=== PATIENT | female | born 1930 | race Caucasian/White ===

== ENCOUNTER 2016-10-22 12:04 | Inpatient (IN) | payer OTHER ==
--- NOTE | 2016-10-22 12:18 | EDPHY ---
H & P Time Seen by Provider: 10/22/16 12:13 HPI/ROS: CHIEF COMPLAINT: change in mental status HISTORY OF PRESENT ILLNESS: Patient is an 83-year-old female detention resident with a history of atrial fibrillation and CVA who presents to the emergency department with slight change in her mental status. Per EMS report the patient was diagnosed with the UTI a couple of days ago. She received a single dose of antibiotics. However, this antibiotic was discontinued due to an interaction with amiodarone. EMS reports that the patient had a slight change in mental status this morning. He states that she answered his questions appropriately and seemed pretty with it. The patient is without complaint. She denies any abdominal pain, nausea or vomiting. The patient wears a diaper at baseline. She has had no dysuria or frequency per her report. She denies back pain. No cough or shortness of breath. No chest pain. REVIEW OF SYSTEMS: My complete review of systems is negative except as mentioned in the HPI. Past Medical/Surgical History: Includes atrial fibrillation, CVA, right-sided weakness, hyperlipidemia, hypertension, GERD, coronary artery disease, muscle weakness, osteoporosis, depression, overactive bladder Social history: The patient is a detention resident The patient is DNR Smoking Status: Former smoker Physical Exam: Vitals noted GENERAL: Well-appearing, in no acute distress, alert. HEENT: Eyes normal to inspection, normal pharynx, no signs of dehydration. NECK: No thyromegaly, no lymphadenopathy, supple. RESPIRATORY: Clear to auscultation bilaterally, no rales, rhonchi or wheezing. CVS: Regular rate and rhythm, no rubs, murmurs, or gallops. ABDOMEN: Soft, nontender, nondistended, no organomegaly. : Diaper in place BACK: Normal to inspection, no CVA tenderness. SKIN: Normal color, no rash, warm, dry. No pallor. EXTREMITIES: Bilateral pedal edema, no calf tenderness, no Homans sign or cords. NEURO/PSYCH: Alert and oriented. Patient seems answer all my questions appropriately. Normal mood and affect, normal motor sensory exam. Constitutional: Initial Vital Signs Temperature (C) 36.6 C 10/22/16 12:06 Heart Rate 88 10/22/16 12:06 Respiratory Rate 18 10/22/16 12:06 Blood Pressure 65/49 L 10/22/16 12:06 Allergies/Adverse Reactions: No Allergies [NKDA] Allergy (Verified 06/08/15 16:02) Home Medications: Medication Instructions Recorded Acetaminophen [Tylenol ES 500 mg 500 mg PO BID 06/08/15 (*)] Amiodarone HCl 200 mg PO DAILY 06/08/15 Apixaban [Eliquis] 5 mg PO BID 06/08/15 Cholecalciferol Vit D3 [Vitamin D3 1 tab PO DAILY 06/08/15 (*)] Levothyroxine [Synthroid 25 mcg 25 mcg PO DAILY06 06/08/15 (*)] Lisinopril [Zestril 10 mg (*)] 10 mg PO DAILY 06/08/15 Omeprazole [Prilosec] 40 mg PO DAILY18 06/08/15 Pravastatin Sodium [Pravachol] 10 mg PO DAILY 06/08/15 Solifenacin Succinate [Vesicare] 10 mg PO DAILY 06/08/15 Vitamin B Complex [B Complex] 1 each PO DAILY 06/08/15 traZODone [traZODONE 100MG (*)] 100 mg PO HS 06/08/15 Amiodarone HCl [Pacerone (*)] 200 mg PO DAILY #0 tab 06/13/15 Apixaban [Eliquis] 5 mg PO BID #0 tab 06/13/15 Cholecalciferol Vit D3 [Vitamin D3 1,000 units PO DAILY #0 tab 06/13/15 (*)] Diclofenac Sodium [Voltaren Gel 0 shanae TP QID 06/13/15 (Rx)] Furosemide [Lasix 40 MG (*)] 40 mg PO DAILY #90 tab 06/13/15 Levothyroxine [Synthroid 25 mcg 25 mcg PO DAILY06 #0 tab 06/13/15 (*)] Lisinopril [Zestril 10 mg (*)] 10 mg PO DAILY #0 tab 06/13/15 Pantoprazole Sodium [Protonix 40mg 40 mg PO DAILY18 #0 tab 06/13/15 (*)] Pravastatin Sodium [Pravachol] 10 mg PO HS #0 tab 06/13/15 Solifenacin Succinate [Vesicare 5 10 mg PO DAILY8 #0 tab 06/13/15 MG (*)] traZODone [traZODONE 100MG (*)] 100 mg PO HS #0 tab 06/13/15 Medical Decision Making ED Course/Re-evaluation: In the emergency department I met EMS on arrival. I took report. I reviewed the patient's records that she brought with her from [place]. It is noted that the patient had a positive urine culture (25,000) on 10/15/2016. At that time she also had greater than 100 white cells and 10-20 red cells. There is moderate bacteria. The patient had received 2 doses ciprofloxacin and this was discontinued due to its interaction with amiodarone Patient's family arrived. I spoke with the daughter. She states the patient is a DNR and the patient wanted minimal intervention. Initially, the patient's daughter states she did not want antibiotics or any further treatment. After my discussion with the findings thus far the patient did agree to antibiotics. The patient triggers sepsis screening alert. However, she does not want any invasive procedures. Patient was noted to have significant pedal edema. She will be given fluids gingerly rather than 30 milliliters/kilogram. Although I suspect potential urinary tract infection we have not obtained a urine result. The patient was wearing a diaper on arrival. A Fagan will need to be placed. The patient and daughter consented. Awaiting chest x-ray. Patient was given ertapenem 1 g IV. 1240: The patient is alert. She is answering questions appropriately. She has no complaints. There are no signs of distress. Patient's daughter states she seems at her baseline. I discussed the plan with the patient's daughter and answered all her questions. I discussed the case with the hospitalist service. They agree to admission. Chest x-ray: No focal infiltrate. The patient does have nodular disease. There is a metallic object over the left heart. 1325: Still awaiting lactic acid. I discussed this with the nursing staff. Lactate was 1.4. Differential Diagnosis: My differential includes but is not limited to urinary tract infection, pyelonephritis, electrolyte abnormality, sugar abnormality, bacteremia, sepsis, pneumonia, Critical Care Time: Patient required 35 minutes of critical care time. This was exclusive of any unbundled procedure. This was due to the patient's abnormal vital signs, long discussions with family, frequent rechecks, consultation with the hospitalist service. - Data Points Laboratory Results: Laboratory Results 10/22/16 11:45 10/22/16 11:45 10/22/16 10/22/16 13:20 11:45 WBC 27.71 H 10^3/uL (3.80-9.50) RBC 3.84 L 10^6/uL (4.18-5.33) Hgb 12.3 L g/dL (12.6-16.3) Hct 37.1 L % (38.0-47.0) MCV 96.6 fL (81.5-99.8) MCH 32.0 pg (27.9-34.1) MCHC 33.2 g/dL (32.4-36.7) RDW 13.2 % (11.5-15.2) Plt Count 403 H 10^3/uL (150-400) MPV 10.0 fL (8.7-11.7) Neut % (Auto) Not Reported Lymph % (Auto) Not Reported [place] % (Auto) Not Reported Eos % (Auto) Not Reported Baso % (Auto) Not Reported Nucleat RBC Rel Count 0.0 % (0.0-0.2) Absolute Neuts (auto) Not Reported Absolute Lymphs (auto) Not Reported Absolute Monos (auto) Not Reported Absolute Eos (auto) Not Reported Absolute Basos (auto) Not Reported Absolute Nucleated RBC 0.00 10^3/uL (0-0.01) Immature Gran % Not Reported Seg Neutrophils % 89 % Band Neutrophils % 5 % Lymphocytes % 6 % Immature Gran # Not Reported Absolute Seg Neuts 24.66 H 10^/uL (1.70-6.50) Absolute Band Neuts 1.39 H 10^3/uL (0.00-0.70) Absolute Lymphocytes 1.66 10^3/uL (1.00-3.00) Toxic Granulation PRESENT H Platelet Estimate INCREASED H (ADEQ) Oval Macrocytes 1+ H PT 19.4 H SEC (12.0-15.0) INR 1.63 H (0.83-1.16) APTT 36.1 SEC (23.0-38.0) Sodium 137 mEq/L (134-144) Potassium 5.3 H mEq/L (3.5-5.2) Chloride 101 mEq/L (97-110) Carbon Dioxide 21 L mEq/l (22-31) Anion Gap 15 mEq/L (8-16) BUN 75 H mg/dL (7-23) Creatinine 3.0 H mg/dL (0.6-1.0) Estimated GFR 15 Glucose 167 H mg/dL (70-100) Calcium 10.1 mg/dL (8.5-10.4) Urine Color Pending Urine Appearance Pending Urine pH Pending Ur Specific [place] Pending Urine Protein Pending Urine Ketones Pending Urine Blood Pending Urine Nitrate Pending Urine Bilirubin Pending Urine Urobilinogen Pending Ur Leukocyte Esterase Pending Ur Culture Indicated? Pending Urine Glucose Pending Medications Given: Discontinued Medications Sodium Chloride (Ns) 500 mls @ 0 mls/hr IV ONCE ONE PRN Reason: Wide Open Stop: 10/22/16 12:21 Last Admin: 10/22/16 12:40 Dose: 500 mls Ertapenem 1 gm/ Sodium (Chloride) 100 mls @ 200 mls/hr IV EDNOW ONE PRN Reason: Protocol Stop: 10/22/16 13:13 Last Admin: 10/22/16 14:10 Dose: 100 mls Sodium Chloride (Ns) 1,000 mls @ 0 mls/hr IV ONCE ONE PRN Reason: Wide Open Stop: 10/22/16 14:00 Last Admin: 10/22/16 13:59 Dose: 1,000 mls Departure - Departure Disposition: [facility] Inpatient Acute Clinical Impression: Severe sepsis, Altered mental status Condition: Good
[2016-10-22] MEDS ORDERED: NS 500 ML IV ONE ×2 (12:20→23:58)
[2016-10-22 12:29] LABS: ADD DIFF? YES; ADD MORPH? NO; ADD SCAN? NO; ATYPICAL LYMPHOCYTE FLAG 0 (0-99); FRAGMENT RBC FLAG 0 (0-99); HEMATOCRIT 37.1 % (38.0-47.0); HEMOGLOBIN 12.3 g/dL (12.6-16.3); LEFT SHIFT FLG 0 (0-99); LIPEMIA HEMOLYSIS FLAG 80 (0-99); MEAN CELL HEMOGLOBIN CONCENTR. 33.2 g/dL (32.4-36.7); MEAN CELL VOLUME 96.6 fL (81.5-99.8); PLATELET CLUMPS FLAG 0 (0-99); PLATELET COUNT 403 10^3/uL (150-400); RED BLOOD CELL COUNT 3.84 10^6/uL (4.18-5.33); RED CELL DISTRIBUTION WIDTH 13.2 % (11.5-15.2)
[2016-10-22 12:33] LABS: INR 1.63 (0.83-1.16); PROTIME(PATIENT) 19.4 SEC (12.0-15.0)
[2016-10-22 12:34] LABS: ANION GAP 15 mEq/L (8-16); APTT 36.1 SEC (23.0-38.0); CALCIUM 10.1 mg/dL (8.5-10.4); CARBON DIOXIDE 21 mEq/l (22-31); CHLORIDE 101 mEq/L (97-110); GLOMERULAR FILTRATION RATE 15; GLUCOSE 167 mg/dL (70-100); POTASSIUM 5.3 mEq/L (3.5-5.2); SODIUM 137 mEq/L (134-144)
[2016-10-22] MEDS ORDERED: ERTAPENEM 1 GM in NS 100 ML IV ONE (12:44)
[2016-10-22 13:25] LABS: MACROCYTES 1+; PLATELET ESTIMATE INCREASED (ADEQ); TOXIC GRANULATION PRESENT
--- NOTE | 2016-10-22 13:34 | DX ---
Chest, AP Upright and Lateral Views October 22, 2016 at 12:35 p.m. Clinical History: 86-year-old female with increasing confusion and possible UTI. Comparison Study: Chest, dated June 13, 2015. Findings: The cardiac and mediastinal silhouettes are stable in size. There has been interval placeme nt of a small metallic device projected over the left ventricle. There is mild peribronchial thickeni ng. There has also been development of some small nodular opacities in the upper lung zones bilateral ly. These could be further evaluated with chest CT imaging, as clinically directed. 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 There is no pleural effusion, peripheral interstitial edema, or pneumothorax. Degenerative features of the shoulders and spine are noted. There are surgical clips in the upper abdomen. Impression: 1. Interval placement of a clip projected over the left ventricle. Correlation with the patient's car diac history is suggested. 2. Interval development of bilateral opacities in the upper lung zones, which could be further evalua carlota with CT imaging, as clinically directed. 3. There is no new focal infiltrate otherwise identified, nor is there evidence of congestive heart f ailure. I discussed the above findings with Dr. Abeba Bermudez at 1:15 p.m. on October 22, 2016.
[2016-10-22] MEDS ORDERED: NS 1,000 ML IV ONE ×2 (13:59→14:09)
[2016-10-22 14:06] LABS: COLOR AMBER
[2016-10-22] MEDS ORDERED: ONDANSETRON DISINTEGRATING 4 MG TAB PO PRN (14:09)
[2016-10-22] MEDS ORDERED: ONDANSETRON 4 MG/2 ML VIAL IVP PRN (14:09)
[2016-10-22] MEDS ORDERED: NS W/ 20 KCl/L 1,000 ML IV SCH (14:15)
[2016-10-22 14:19] LABS: BACTERIA TRACE /hpf (NONE SEEN); WBC,URINE 50-182 /hpf (0-3)
[2016-10-22] MEDS: NS 1,000 ML IV SCH ×3 (15:00→21:54)
--- NOTE | 2016-10-22 15:01 | GHP ---
[f rep st] HISTORY AND PHYSICAL DATE OF ADMISSION: 10/22/2016 CHIEF COMPLAINT: Confusion. HISTORY OF PRESENT ILLNESS: An 86-year-old female with an extensive cardiac history, [facility] noted to be somnolent and confused. Patient was transported by EMS from nursing to the emergency department. In the emergency department, patient is endorsing suprapub ic pain, dysuria, subjective fevers and chills, mild nausea, no vomiting. Denies diarrhea. Denies c hest pain, palpitations, or shortness of breath. The patient is a current alf resident. De soniyaes eating breakfast this morning due to lethargy. Reports her recent overall intake has been low. PAST MEDICAL HISTORY: 1. Atrial fibrillation, on anticoagulation. 2. History of a CVA. 3. Hyperlipidemia. 4. Hypertension. 5. Gastroesophageal reflux disease. 6. Coronary artery disease. 7. Osteoporosis. 8. Depression. 9. Pulmonary hypertension. 10. Severe mitral regurgitation. SOCIAL HISTORY: Patient is a alf resident. Denies tobacco, alcohol or illicit drugs. FAMILY HISTORY: Negative for heart disease. ADVANCED DIRECTIVES: The patient is do not resuscitate, [facility] She says her medical decision maker would be her daughter. REVIEW OF SYSTEMS: A 10-point review of systems is negative with the exception of that reported in t he HPI. PHYSICAL EXAMINATION: VITAL SIGNS: Blood pressure 65/49, heart rate 88, respiratory rate 18, 100% o n 2 L, 36.6. GENERAL: This is a fragile, elderly female, lying flat in bed. HEENT: Notable for dr y mucous membranes. Eye exam is negative for any icterus. CARDIAC: Patient is regular rate and rhy thm. Systolic murmur is appreciated. PULMONARY: Patient has poor respiratory effort. Dry rales at bilateral bases. GASTROINTESTINAL: Positive bowel sounds. Abdomen is tender to palpation in supra pubic area. No rebound or guarding. No CVA tenderness is appreciated. MUSCULOSKELETAL: Negative f or any lower extremity edema. SKIN: Negative for any rashes. NEUROLOGIC: Patient is alert and lindy ented x2. PSYCHIATRIC: She is pleasant and cooperative on interview and examination. LAB DATA: White count 27,000, hematocrit 37.1; which is baseline, platelets 403. Creatinine 3.0; ba seline 1, potassium 5.3, bicarb 21, glucose 167. Chest x-ray, which I personally reviewed and interp reted, shows no acute infiltrates. Radiology comments on several upper lobe opacities; may be nodule s, will need further diagnostic imaging. ASSESSMENT AND PLAN: This is an 86-year-old female presenting with lethargy and confusion. 1. Severe sepsis. The patient is presenting with hypotension, leukocytosis, fever. Baseline blood pressures, per the patient's chart, are hypertensive ranging in the 130s to 160s. Patient was report edly diagnosed with a urinary tract infection in the alf and given 1 dose of antibiotics. P andre for aggressive fluid resuscitation. Blood pressures are stable, will not need pressure support. Initiate empiric antibiotics for presumed sepsis secondary to urinary source. Will treat with ceftr iaxone empirically. Blood cultures and urine cultures have been sent from the emergency department. 2. Pyelonephritis. The patient is presenting septic presumed from a urinary source. Will send urin alysis urine culture, blood cultures. 3. Acute kidney injury, presumably secondary to sepsis, hyperperfusion and urinary tract infection. Again, will fluid resuscitate, treat with empiric antibiotics and follow her renal function. 4. Hyperkalemia secondary to acute kidney injury. Will check an EKG and rule out acute changes. Pl enid the patient on telemetry monitoring. If changes on the EKG, will treat with Kayexalate. 5. Hypotension. The patient is baseline hypertensive presenting with systolic blood pressures in th e 60s. Will aggressively fluid resuscitate and follow. 6. Paroxysmal atrial fibrillation. The patient is regular on my examination. Check an EKG. Contin ue her outpatient medications with the exception of any medications that may compound her hypotension . 7. Hypothyroidism. Will continue her Synthroid therapy. 8. Gastroesophageal reflux disease. Will continue her PPI. 9. Coronary artery disease. Patient is denying any active chest pain. Once reconciled, can continu e her cardiac medications, which based on history, appear to include Eliquis, statin. Will hold ENID inhibitor for hypotension prophylaxis. Continue patient's full-dose anticoagulation. DIET: Cardiac. DISPOSITION: Expecting greater than 2 midnights as patient is presenting septic, presumed from urina ry source. I have discussed the case with the emergency room physician. Patient will be triaged to the medical-surgical floor with cardiac monitoring for care. /[id number]/MODL
[2016-10-22] MEDS ORDERED: BISACODYL 5 MG EC TAB PO PRN (15:18)
[2016-10-22] MEDS ORDERED: traMADol 50 MG TAB PO PRN (15:18)
[2016-10-22] MEDS: buPROPion 100 MG TAB PO SCH ×2 (17:39→20:13)
--- NOTE | 2016-10-22 17:41 | CPEKG ---
Heart Rate: 92 RR Interval: 652 P-R Interval: 196 QRSD Interval: 114 QT Interval: 380 QTC Interval: 471 P [place]: 1 QRS [place]: 24 T Wave [place]: 10 EKG Severity - ABNORMAL ECG - EKG Impression: SINUS RHYTHM EKG Impression: NONSPECIFIC INTRAVENTRICULAR CONDUCTION DELAY Electronically Signed By: Prasanth Garcia 23-Oct-2016 07:39:11
[2016-10-22] MEDS: BACLOFEN 10 MG TAB PO SCH (20:13)
[2016-10-22] MEDS: APIXABAN 2.5 MG TAB PO SCH (20:13)
[2016-10-22] MEDS: DOCUSATE SODIUM 100 MG CAP PO SCH (20:13)
[2016-10-22] MEDS: ATORVASTATIN CALCIUM 10 MG TAB PO SCH (20:13)
[2016-10-22] MEDS: ASCORBIC ACID 500 MG TAB PO SCH (20:17)
[2016-10-22] MEDS ORDERED: PHENAZOPYRIDINE HCL 100 MG TAB PO SCH (21:00)
[2016-10-22] MEDS: ACETAMINOPHEN 325 MG TAB PO PRN (23:26)
[2016-10-22] MEDS: NYSTATIN 15 GM CR TUBE TP SCH (23:27)
[2016-10-23] MEDS ORDERED: ALTEPLASE 2 MG VIAL IVP PRN (03:55)
[2016-10-23 04:57] LABS: % IMMATURE GRANULYOCYTES 0.9 % (0.0-1.1); ABSOLUTE IMMATURE GRANULOCYTES 0.17 10^3/uL (0.00-0.10); ADD DIFF? NO; ADD MORPH? NO; ADD SCAN? NO; ATYPICAL LYMPHOCYTE FLAG 0 (0-99); FRAGMENT RBC FLAG 0 (0-99); HEMATOCRIT 28.8 % (38.0-47.0); HEMOGLOBIN 9.2 g/dL (12.6-16.3); LEFT SHIFT FLG 0 (0-99); LIPEMIA HEMOLYSIS FLAG 80 (0-99); MEAN CELL HEMOGLOBIN 31.6 pg (27.9-34.1); MEAN CELL HEMOGLOBIN CONCENTR. 31.9 g/dL (32.4-36.7); MEAN PLATELET VOLUME 9.9 fL (8.7-11.7); PLATELET CLUMPS FLAG 0 (0-99); PLATELET COUNT 269 10^3/uL (150-400); RED BLOOD CELL COUNT 2.91 10^6/uL (4.18-5.33); RED CELL DISTRIBUTION WIDTH 13.3 % (11.5-15.2)
[2016-10-23 05:16] LABS: ANION GAP 9 mEq/L (8-16); CALCIUM 8.7 mg/dL (8.5-10.4); CARBON DIOXIDE 18 mEq/l (22-31); CHLORIDE 113 mEq/L (97-110); CREATININE 1.8 mg/dL (0.6-1.0); GLOMERULAR FILTRATION RATE 27; GLUCOSE 85 mg/dL (70-100); POTASSIUM 4.2 mEq/L (3.5-5.2); SODIUM 140 mEq/L (134-144)
[2016-10-23] MEDS: LEVOTHYROXINE 112 MCG TAB PO SCH (05:17)
[2016-10-23] MEDS: DOCUSATE SODIUM 100 MG CAP PO SCH ×2 (07:26→23:06)
[2016-10-23] MEDS: NS 1,000 ML IV SCH ×2 (08:30→18:34)
[2016-10-23] MEDS ORDERED: Herbals/Supplements -Info Only PO SCH (09:00)
[2016-10-23] MEDS ORDERED: NON-FORMULARY NEW DRUG (Mirabegron [Myrbetriq] 50 MG) PO SCH (09:00)
[2016-10-23] MEDS: APIXABAN 2.5 MG TAB PO SCH ×2 (10:09→20:40)
[2016-10-23] MEDS: AMIODARONE HCL 200 MG TAB PO SCH (10:10)
[2016-10-23] MEDS: ASCORBIC ACID 500 MG TAB PO SCH ×2 (10:11→20:40)
[2016-10-23] MEDS: ASPIRIN 81 MG CHEWABLE TAB PO SCH (10:11)
[2016-10-23] MEDS: FAMOTIDINE 20 MG TAB PO SCH (10:11)
[2016-10-23] MEDS: buPROPion 100 MG TAB PO SCH ×3 (10:11→20:40)
[2016-10-23] MEDS: BACLOFEN 10 MG TAB PO SCH ×2 (10:11→20:40)
[2016-10-23] MEDS: NYSTATIN 15 GM CR TUBE TP SCH (10:12)
--- NOTE | 2016-10-23 10:36 | IR ---
Imaging-Guided Peripherally Inserted Central Catheter History: Septic shock. Prophylactic Antibiotic: Cefazolin was not ordered and administered for antimicrobial prophylaxis be cause it was not medically necessary for this procedure. VTE Prophylaxis: There is not an order for VTE prophylaxis to be given within 24 hours after procedu re end time because it was not medically necessary for this procedure. Crosscutting Measure: Patient's current list of medications including all known prescriptions, over- the-counters, herbals, and vitamin/mineral/dietary supplements are reviewed. Medications' name, dosa ge, frequency, and route of administration are confirmed. Technique: Following informed consent, the right arm was prepped and draped in sterile fashion. 1% Xy locaine was used for local anesthetic. All elements of maximal sterile barrier technique including cap, mask, sterile gown, sterile gloves, large sterile sheet, hand hygiene, and 2% chlorhexidine for cutaneous antisepsis, followed. Ultrasound evaluation of potential access site was performed. After successfully identifying a patent vessel, ultrasound guidance was used to puncture the vein. A permanent recording was created for the patient's record. Ultrasound transducer was placed in sterile sleeve and used for real-time imaging guidance over steri le gel to enter the basilic vein. 0.018 measuring wire was passed centrally under fluoroscopic contro l. A skin kacie with scalpel blade was followed by removing the access needle. A 5 Martiniquais peel-away sh eath was followed by a 5 Martiniquais double-lumen central catheter, trimmed to 44 cm length. The tip of t he catheter was positioned centrally and the guidewire removed. A single fluoroscopic spot image was obtained in inspiration. The hub of the catheter was fixed to the skin using a sterile StatLock adhes karri device, and a sterile dressing was applied. The catheter was irrigated. Findings: The tip of the central catheter terminates at the junction of the superior vena cava and th e right atrium. Fluoroscopy: 0.2 minutes, 2 images Impression: 5 Martiniquais double lumen peripherally inserted central catheter is ready to use.
--- NOTE | 2016-10-23 14:33 | HOSPPROG ---
Hospitalist Progress Note Assessment/Plan: # Sepsis - 2/2 urinary source - BP remains low requiring pressor support - WBC slightly down - cont dopamine - cont IVF - cont empiric abx # Acute Pyelonephritis - Urine cx Pending - cont aggressive IVF and empiric abx # Hypotension 2/2 Sepsis - baseline BP 130's - oxygen saturations 100% on 2L - cont dopamine/IVF - holding lasix and home BP meds # VLAD 2/2 sepsis - creatinine down from 3.0 to 1.8 this am - cont ivf and dopamine # Acute leukocytosis - 27-> 17 this am - cont ceftriaxone # Atrial fibrillation - TELE (personally reviewed and interpreted) in sinus- rate controlled - cont anticoagulation - cont amiodarone # hypothyroidism - cotn synthroid # proph - on anticoagulation # diet - cardiac # dispo -> 2MN as requiring acute care for sepsis including pressors/IVF I have discussed the case with RN - we will cont with aggressive IVF as pressures still requiring dopamine this am Subjective: denies cp Objective: Vital Signs Temp Pulse Resp BP Pulse Ox 36.5 C 93 14 122/66 H 100 10/23/16 11:38 10/23/16 11:38 10/23/16 11:38 10/23/16 11:38 10/23/16 11:38 Laboratory Results 10/23/16 04:00 10/23/16 04:00 10/22/16 10/23/16 10/24/16 05:59 05:59 05:59 Intake Total 5413 480 Output Total 1375 625 Balance 4038 -145 PT 19.4 SEC (12.0-15.0) H 10/22/16 11:45 INR 1.63 (0.83-1.16) H 10/22/16 11:45 - Physical Exam Constitutional: chronically ill appearing Eyes: anicteric sclera Ears, Nose, Mouth, Throat: dry mucous membranes Cardiovascular: regular rate and rhythym, systolic murmur Respiratory: no respiratory distress, no rales or rhonchi Gastrointestinal: normoactive bowel sounds, soft, non-tender abdomen Genitourinary: no bladder fullness Skin: warm, normal color Musculoskeletal: No asymmetric calves Neurologic: No AAOx3 Psychiatric: No agitated Lymph, Heme, Immunologic: no cervical LAD ICD10 Worksheet Patient Problems: Problems Problem Status Diagnosed Altered mental status Acute Severe sepsis Acute Aortic regurgitation Acute Chronic Disease Mgmt/Transitional Care Acute Diastolic CHF due to valvular disease Acute Mitral regurgitation Acute Pulmonary hypertension Acute
[2016-10-23] MEDS: ATORVASTATIN CALCIUM 10 MG TAB PO SCH (20:40)
[2016-10-24] MEDS: NS 1,000 ML IV SCH ×2 (04:12→15:30)
[2016-10-24] MEDS: LEVOTHYROXINE 112 MCG TAB PO SCH (04:13)
[2016-10-24] MEDS: NYSTATIN 15 GM CR TUBE TP SCH ×3 (04:14→20:40)
[2016-10-24 04:49] LABS: ANION GAP 4 mEq/L (8-16); CALCIUM 8.8 mg/dL (8.5-10.4); CARBON DIOXIDE 21 mEq/l (22-31); CHLORIDE 115 mEq/L (97-110); CREATININE 1.3 mg/dL (0.6-1.0); GLOMERULAR FILTRATION RATE 39; GLUCOSE 85 mg/dL (70-100); POTASSIUM 3.9 mEq/L (3.5-5.2); SODIUM 140 mEq/L (134-144)
[2016-10-24 04:54] LABS: HEMATOCRIT 27.9 % (38.0-47.0); HEMOGLOBIN 8.8 g/dL (12.6-16.3); MEAN CELL HEMOGLOBIN CONCENTR. 31.5 g/dL (32.4-36.7); MEAN CELL VOLUME 98.2 fL (81.5-99.8); RED BLOOD CELL COUNT 2.84 10^6/uL (4.18-5.33)
[2016-10-24] MEDS: BACLOFEN 10 MG TAB PO SCH ×2 (08:56→20:23)
[2016-10-24] MEDS: buPROPion 100 MG TAB PO SCH ×3 (08:57→20:40)
[2016-10-24] MEDS: DOCUSATE SODIUM 100 MG CAP PO SCH ×2 (08:57→20:23)
[2016-10-24] MEDS: AMIODARONE HCL 200 MG TAB PO SCH (08:57)
[2016-10-24] MEDS: FAMOTIDINE 20 MG TAB PO SCH (08:57)
[2016-10-24] MEDS: APIXABAN 2.5 MG TAB PO SCH ×2 (08:57→20:23)
[2016-10-24] MEDS: ASCORBIC ACID 500 MG TAB PO SCH ×2 (08:57→20:23)
[2016-10-24] MEDS: ASPIRIN 81 MG CHEWABLE TAB PO SCH (08:57)
--- NOTE | 2016-10-24 13:22 | HOSPPROG ---
Hospitalist Progress Note Assessment/Plan: # Sepsis - 2/2 urinary source - BP remains low requiring pressor support - WBC slightly down - wean dopamine - cont IVF - cont empiric abx # Acute Pyelonephritis - Urine cx grew Aerococcus - micro cannot run sensitivities on this pathogen Pathogen no in [place] - will discuss with renal - cont ceftriaxone # Hypotension 2/2 Sepsis - baseline BP 130's - oxygen saturations 100% on 1L - cont dopamine/IVF - holding lasix and home BP meds # VLAD 2/2 sepsis - creatinine down from 3.0 to 1.3 this am - can wean dopamine -and IVF as able # Acute leukocytosis - 27-> 10 this am - cont ceftriaxone # Atrial fibrillation - TELE (personally reviewed and interpreted) in sinus- rate controlled - cont anticoagulation - cont amiodarone # hypothyroidism - cont synthroid # proph - on anticoagulation # diet - cardiac # dispo -> 2MN as requiring acute care for sepsis - including IV abx and IVF I have discussed the case with RN - we will wean dopamine today and decrease IVF if PO intake improving Subjective: denies CP Objective: Vital Signs Temp Pulse Resp BP Pulse Ox 37.1 C 90 18 109/59 L 99 10/24/16 11:26 10/24/16 11:26 10/24/16 11:26 10/24/16 12:51 10/24/16 11:26 Microbiology 10/22/16 14:17 Urine Culture - Final Urine,Clean Catch Aerococcus Urinae Laboratory Results 10/24/16 04:15 10/24/16 04:15 10/23/16 10/24/16 10/25/16 05:59 05:59 05:59 Intake Total 5413 3220 Output Total 1375 2200 Balance 4038 1020 PT 19.4 SEC (12.0-15.0) H 10/22/16 11:45 INR 1.63 (0.83-1.16) H 10/22/16 11:45 - Physical Exam Constitutional: appears nourished Eyes: anicteric sclera Ears, Nose, Mouth, Throat: moist mucous membranes Cardiovascular: regular rate and rhythym, systolic murmur Respiratory: no respiratory distress, no rales or rhonchi Gastrointestinal: normoactive bowel sounds, soft, non-tender abdomen Genitourinary: no bladder fullness Skin: warm, normal color Musculoskeletal: No asymmetric calves Neurologic: No AAOx3 Psychiatric: interacting appropriately Lymph, Heme, Immunologic: no cervical LAD ICD10 Worksheet Patient Problems: Problems Problem Status Diagnosed Altered mental status Acute Severe sepsis Acute Aortic regurgitation Acute Chronic Disease Mgmt/Transitional Care Acute Diastolic CHF due to valvular disease Acute Mitral regurgitation Acute Pulmonary hypertension Acute
[2016-10-24] MEDS ORDERED: NS 1,000 ML IV SCH (19:00)
[2016-10-24] MEDS: ATORVASTATIN CALCIUM 10 MG TAB PO SCH (20:23)
[2016-10-24] MEDS: ACETAMINOPHEN 325 MG TAB PO PRN (21:50)
[2016-10-25] MEDS: LEVOTHYROXINE 112 MCG TAB PO SCH (05:53)
[2016-10-25 06:02] LABS: HEMOGLOBIN 8.2 g/dL (12.6-16.3); MEAN CELL HEMOGLOBIN 31.8 pg (27.9-34.1); MEAN CELL HEMOGLOBIN CONCENTR. 32.8 g/dL (32.4-36.7); MEAN CELL VOLUME 96.9 fL (81.5-99.8); RED BLOOD CELL COUNT 2.58 10^6/uL (4.18-5.33); RED CELL DISTRIBUTION WIDTH 12.9 % (11.5-15.2)
[2016-10-25 06:37] LABS: ANION GAP 4 mEq/L (8-16); CALCIUM 8.4 mg/dL (8.5-10.4); CARBON DIOXIDE 21 mEq/l (22-31); CHLORIDE 112 mEq/L (97-110); GLOMERULAR FILTRATION RATE 52; GLUCOSE 91 mg/dL (70-100); POTASSIUM 3.7 mEq/L (3.5-5.2); SODIUM 137 mEq/L (134-144)
[2016-10-25] MEDS: ASCORBIC ACID 500 MG TAB PO SCH (09:29)
[2016-10-25] MEDS: BACLOFEN 10 MG TAB PO SCH (09:29)
[2016-10-25] MEDS: buPROPion 100 MG TAB PO SCH ×2 (09:30→17:24)
[2016-10-25] MEDS: ASPIRIN 81 MG CHEWABLE TAB PO SCH (09:30)
[2016-10-25] MEDS: FAMOTIDINE 20 MG TAB PO SCH (09:30)
[2016-10-25] MEDS: DOCUSATE SODIUM 100 MG CAP PO SCH (09:30)
[2016-10-25] MEDS: APIXABAN 2.5 MG TAB PO SCH (09:30)
[2016-10-25] MEDS: NYSTATIN 15 GM CR TUBE TP SCH (09:31)
[2016-10-25] MEDS: AMIODARONE HCL 200 MG TAB PO SCH (09:31)
--- NOTE | 2016-10-25 15:25 | PDIAF ---
- Diagnosis Diagnosis: sepsis from urinary source Code Status: Do Not Resuscitate - Medication Management Discharge Medications: Medications to Continue on Transfer Acetaminophen [Tylenol 325mg (*)] 650 mg PO Q6 PRN 10/22/16 [Last Taken Unknown] Amiodarone HCl [Pacerone (*)] 200 mg PO DAILY 10/22/16 [Last Taken 10/22/16] Apixaban [Eliquis] 2.5 mg PO BID 10/22/16 [Last Taken 10/22/16 08:00] Ascorbic Acid [Vitamin C 250 mg (*)] 500 mg PO BID 10/22/16 [Last Taken 08:00] Aspirin [Aspirin 81mg (*)] 81 mg PO DAILY 10/22/16 [Last Taken 10/22/16] Atorvastatin Calcium [Lipitor 10 mg (*)] 10 mg PO HS 10/22/16 [Last Taken ] Baclofen [Baclofen 10 mg (*)] 5 mg PO BID 10/22/16 [Last Taken 10/22/16 08:00] Bisacodyl [Bisacodyl (*)] 5 mg PO Q12 PRN 10/22/16 [Last Taken Unknown] Docusate Sodium [Colace 100 MG (*)] 100 mg PO BID 10/22/16 [Last Taken 10/22/16 08:00] Famotidine [Pepcid 20 MG (*)] 20 mg PO DAILY 10/22/16 [Last Taken 10/22/16] Herbals/Supplements -Info Only 1 ea PO DAILY 10/22/16 [Last Taken Unknown] Levothyroxine [Synthroid 112 mcg (*)] 112 mcg PO DAILY06 10/22/16 [Last Taken ] Mirabegron [Myrbetriq] 50 mg PO DAILY 10/22/16 [Last Taken 10/22/16] Nystatin Cream 100,000 Unit/Gm 1 shanae TP BID 10/22/16 [Last Taken Unknown] Phenazopyridine HCl [Pyridium] 100 mg PO BID 10/22/16 [Last Taken 10/22/16 08:00 ] Prochlorperazine Maleate [Compazine 10mg (*)] 10 mg PO Q6 PRN 10/22/16 [Last Taken 10/22/16 10:32] buPROPion [Wellbutrin 100mg (*)] 100 mg PO TID 10/22/16 [Last Taken 10/22/16 11: 00] hydrALAZINE [Apresoline] 25 mg PO Q6H PRN 10/22/16 [Last Taken Unknown] traMADol [Ultram 50 mg (*)] 50 mg PO Q4 PRN 10/22/16 [Last Taken 10/22/16 08:00] traZODone [traZODONE 100MG (*)] 100 mg PO HS 10/22/16 [Last Taken 10/21/16] Amoxicillin 500 mg PO TID 3 Days 10/25/16 [Last Taken Unknown] Discharge Medications: Refer to the Discharge Home Medication list for PRN reason. - Orders Services needed: Registered Nurse, Physical Therapy, Occupational Therapy Diet Recommendation: no restrictions on diet Diet Texture: Regular Texture Diet - Labs/Radiology BMP Date: 11/01/16 (to follow renal function) - Follow Up Care Current Providers and Referrals: NONE *PRIMARY CARE P,. [Unknown] - As per Instructions
[2016-10-25 15:57] VITALS: BP 123/62; PULSE 92; RESP 19; TEMP 99; O2SAT 96
--- NOTE | 2016-10-25 17:08 | GDS ---
[f rep st] DISCHARGE SUMMARY DISCHARGE DIAGNOSES: Include: 1. Severe sepsis, secondary to urinary source. 2. Acute pyelonephritis. 3. Hypotension, secondary to sepsis. 4. Acute kidney injury, secondary to sepsis. 5. Acute leukocytosis. 6. Permanent atrial fibrillation, on anticoagulation. 7. Hypothyroidism. HISTORY OF PRESENT ILLNESS: This is an 86-year-old female, who presented on 10/22/2016 with complain ts of fatigue and weakness, found to be severely hypotensive. For details of patient's initial prese ntation, please see the history and physical dated 10/22/2016. CONSULTATIVE SERVICES: None. PROCEDURES: PICC line was placed on 10/23/2016. HOSPITAL COURSE BY ISSUE: 1. Severe sepsis: Patient presented with leukocytosis, tachycardia, fever, and hypotension. Presum ed source was urinary based on urinalysis. Patient was empirically treated with IV antibiotics and a ggressive fluid resuscitation. Her blood pressures were only minimally responsive to the first 6 L o f fluids she received and she was started on dopamine pressure support overnight. She has been weane d off pressors and IV fluids at the time of her disposition, and will follow in the outpatient [facility]. 2. Pyelonephritis: Patient had grossly abnormal urine, dysuria,and suprapubic pain. Urine cultures grew Aerococcus urinae, which was difficult to find sensitivity information on. Patient responded n icely to ceftriaxone with a decrease in her white count from 27,000 to normal at 8 on the day of disp osition. Based on the literature reviewed with Infectious Disease, Aerococcus is most sensitive to p enicillins. We transitioned the patient from ceftriaxone to amoxicillin on the day of disposition to finish a full 7-day course. 3. Hypotension: Patient has baseline hypertension. We have held obviously her diuretics and blood pressure medicines, and will continue to do so until her blood pressures return to their natural hype rtensive state. On the day of disposition, patient's systolic blood pressures are in the 120s. 4. Acute kidney injury: Patient presented with a creatinine of 3, which has normalized to 1.0 on day of discharge. Again, we are holding her hypertensive medications and diuretics at discharge. These can be resumed after a longer time period of recovery item. 5. Atrial fibrillation: Patient's initial rates were tachycardic but then, after fluid resuscitatio n, remained controlled. We continued her amiodarone during this hospital stay, as well as her Eliqui s anticoagulation. MEDICATIONS AT THE TIME OF DISPOSITION: Please reference medication reconciliation printed on 2016. Patient is being discharged back home with full nursing support, PT/OT. She is to have her la bs checked in 1 week's time, as well as her blood pressure to evaluate for reinitiation of her home r renita. I spent greater than 30 minutes in the planning and coordination of this discharge. /[id number]/MODL
== END 2016-10-25 18:50 | DRG 872 ==
LOC: EDUNIT# → F2W 14:39
PROVIDERS: ADMIT Hospitalist; ATTEND Hospitalist
PROC: 02HV33Z Insertion of Infusion Device into Superior Vena Cava, Percutaneous Approach (ICD-10-PCS; principal; 2016-10-23)
DX: A41.9 Sepsis, unspecified organism (principal); R65.20 Severe sepsis without septic shock; N10 Acute pyelonephritis; N17.9 Acute kidney failure, unspecified; I48.2 Chronic atrial fibrillation; E03.9 Hypothyroidism, unspecified; I10 Essential (primary) hypertension; I69.351 Hemiplegia and hemiparesis following cerebral infarction affecting right dominant side; M81.0 Age-related osteoporosis without current pathological fracture; N32.81 Overactive bladder; F32.9 Major depressive disorder, single episode, unspecified; E87.5 Hyperkalemia; K21.9 Gastro-esophageal reflux disease without esophagitis; I25.10 Atherosclerotic heart disease of native coronary artery without angina pectoris; Z66 Do not resuscitate; Z79.01 Long term (current) use of anticoagulants
CPT/HCPCS: 97161-GP; 97165-GO; 97530-GO; C1751; G8981-GP-CL; G8982-GP-CK; G8987-GO-CL; G8988-GO-CL; J0696; J1265; J1335

== ENCOUNTER 2017-01-06 15:13 | Emergency (ER) | payer OTHER, MEDICAID ==
--- NOTE | 2017-01-06 15:35 | EDPHY ---
H & P Time Seen by Provider: 01/06/17 15:13 HPI/ROS: CHIEF COMPLAINT: Diagnosed urinary tract infection HISTORY OF PRESENT ILLNESS: 86 year old female history of CVA, atrial fibrillation, daily warfarin, hypothyroid,arrives from [facility] with via ambulance after she was diagnosed with a urinary tract infection yesterday, started on oral antibiotics. The patient's daughter who is a nurse has been caring for her and requested that she go to the ER for further evaluation as she has also been noted tenderness to palpation on her mother in the left lower quadrant as well as painful range of motion of the left shoulder and tenderness to palpation of the left shoulder. Daughter also notes a rash on intertriginous region of the groin. Denies history of abdominal or shoulder trauma. No nausea or vomiting. No back or flank pain. Mentating as normal. REVIEW OF SYSTEMS: A ten point review of systems was performed and is negative with the exception of the items mentioned in the HPI PAST MEDICAL & SURGICAL HISTORY: Hypothyroid. CVA. Atrial fibrillation. Daily warfarin. SOCIAL HISTORY:currently residing at [facility]. Nonsmoker. No alcohol. PHYSICAL EXAM (Prior to examination, patient consented to physical exam, hands were washed and my usual and customary physical exam procedures followed) 1) GENERAL: Well-developed, well-nourished, alert and oriented. Appears to be in no acute distress.Answering questions appropriately. Nontoxic appearing. 2) HEAD: Normocephalic, atraumatic 3) HEENT: Pupils equal, round, reactive to light bilaterally. Sclera anicteric. Nasopharynx, oropharynx, clear, no lesions. Ears bilaterally with normal tympanic membranes. 4) NECK: Full range of motion, no meningeal signs. 5) LUNGS: Clear auscultation bilaterally, no wheezes, no rhonchi, no retractions. 6) HEART: Regular rate and rhythm, no murmur, no heave, no gallop. 7) ABDOMEN: No guarding, tender to palpation left lower quadrant, negative McBurney's, negative Cordova's, negative peritoneal sign, 8) MUSCULOSKELETAL: Left shoulder: Tender to palpation posterior shoulder, reproducible pain with range of motion. No visible deformity. No signs of trauma. Distal neurovascular status is normal with brisk pulses full sensation and brisk capillary refill. Otherwise, Moving all extremities, no focal areas of tenderness, no obvious trauma. No peripheral edema or discoloration. 9) BACK: No CVA tenderness, no midline vertebral tenderness, no fluctuance, no step-off, no obvious trauma, no visual or palpable abnormality. 10) SKIN: No rash, no petechiae. 11) Psychiatric: Patient is oriented X 3, there is no agitation. 12) examination with daughter and female nurse Betzy at bedside at all times reveals beefy red discoloration the intertriginous region with wet diaper. DIFFERENTIAL DIAGNOSIS: in no particular include but limited to cystitis, pyelonephritis, urosepsis, diverticulitis, shoulder fracture, dislocation. 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 , - Social History Smoking Status: Former smoker Constitutional: Initial Vital Signs Temperature (C) 36.9 C 01/06/17 15:25 Heart Rate 82 01/06/17 15:25 Respiratory Rate 16 01/06/17 15:25 Blood Pressure 159/84 H 01/06/17 15:25 O2 Sat (%) 94 01/06/17 15:25 O2 Delivery Mode Room Air Allergies/Adverse Reactions: No Allergies [NKDA] Allergy (Verified 06/08/15 16:02) Home Medications: Medication Instructions Recorded Acetaminophen [Tylenol 325mg (*)] 650 mg PO Q6 PRN 10/22/16 Amiodarone HCl [Pacerone (*)] 200 mg PO DAILY 10/22/16 Apixaban [Eliquis] 2.5 mg PO BID 10/22/16 Ascorbic Acid [Vitamin C 250 mg 500 mg PO BID 10/22/16 (*)] Aspirin [Aspirin 81mg (*)] 81 mg PO DAILY 10/22/16 Atorvastatin Calcium [Lipitor 10 10 mg PO HS 10/22/16 mg (*)] Baclofen [Baclofen 10 mg (*)] 5 mg PO BID 10/22/16 Bisacodyl [Bisacodyl (*)] 5 mg PO Q12 PRN 10/22/16 Docusate Sodium [Colace 100 MG (*)] 100 mg PO BID 10/22/16 Famotidine [Pepcid 20 MG (*)] 20 mg PO DAILY 10/22/16 Herbals/Supplements -Info Only 1 ea PO DAILY 10/22/16 Levothyroxine [Synthroid 112 mcg 112 mcg PO DAILY06 10/22/16 (*)] Mirabegron [Myrbetriq] 50 mg PO DAILY 10/22/16 Nystatin Cream 100,000 Unit/Gm 1 shanae TP BID 10/22/16 Phenazopyridine HCl [Pyridium] 100 mg PO BID 10/22/16 Prochlorperazine Maleate 10 mg PO Q6 PRN 10/22/16 [Compazine 10mg (*)] buPROPion [Wellbutrin 100mg (*)] 100 mg PO TID 10/22/16 hydrALAZINE [Apresoline] 25 mg PO Q6H PRN 10/22/16 traMADol [Ultram 50 mg (*)] 50 mg PO Q4 PRN 10/22/16 traZODone [traZODONE 100MG (*)] 100 mg PO HS 10/22/16 Amoxicillin 500 mg PO TID 3 Days 10/25/16 Cephalexin [Keflex] 500 mg PO QID 7 Days 01/06/17 Medical Decision Making - Diagnostics Imaging: Left shoulder, 3 views History: Left shoulder pain. Findings: Mild degenerative change is seen in the acromioclavicular joint. Calcification is seen superior to the humeral head, which could represent calcific tendinitis. Mild spurring is seen in the humeral head and glenoid. Spur or loose body is seen in the bicipital groove. No evidence for acute fracture or dislocation. Degenerative change is seen in the cervical and thoracic spine. Impression: No evidence for acute fracture. Mild degenerative change at the acromioclavicular joint and glenohumeral joint. Possible loose body in the bicipital groove. Possible calcific tendinitis. Dictated By: John Thomason MD CT abdomen and pelvis interpreted by radiologist shows stool, no diverticulitis , no diverticular abscess. A left paraspinous muscular masses noted as well. Images reviewed by myself ED Course/Re-evaluation: 6:30 p.m.: Patient was re-evaluated with serial examinations. Doubt sepsis. Doubt acute surgical abdominal pathology. No evidence of diverticulitis. Noted to have stool in her colon stool in colon with no evidence of diverticulitis or abscess or perforation. Discussed with the patient and her daughter who is a nurse the normal left shoulder x-ray. Discussed limitations of x-ray in the diagnosis of left shoulder pain. Doubt cardiac or pulmonary etiology as source of shoulder pain. I recommend orthopedic follow-up in a provided this referral information. Recommend she follow up with her provider at [facility] regarding her urinary tract infection. Urine cultured. Given dose of IV ceftriaxone discharged with Keflex. Also noted to have a mass in the left prior spinous muscles which will need further evaluation non emergently. Usual and customary discharge precautions instructions provided. Patient and daughter feel comfortable being discharged back to [facility] - Data Points Laboratory Results: Laboratory Results 01/06/17 16:22 01/06/17 16:22 01/06/17 01/06/17 01/06/17 16:50 16:22 16:22 WBC RBC Hgb POC Hgb Hct POC Hct MCV MCH MCHC RDW Plt Count MPV Neut % (Auto) Lymph % (Auto) [place]ickory % (Auto) Eos % (Auto) Baso % (Auto) Nucleat RBC Rel Count Absolute Neuts (auto) Absolute Lymphs (auto) Absolute Monos (auto) Absolute Eos (auto) Absolute Basos (auto) Absolute Nucleated RBC Immature Gran % Immature Gran # PT 15.5 SEC H SEC (12.0-15.0) INR 1.23 H (0.83-1.16) APTT 35.2 SEC SEC (23.0-38.0) POC Sodium Sodium 136 mEq/L mEq/L (134-144) POC Potassium Potassium 3.6 mEq/L mEq/L (3.5-5.2) POC Chloride Chloride 101 mEq/L mEq/L (97-110) Carbon Dioxide 24 mEq/l mEq/l (22-31) Anion Gap 11 mEq/L mEq/L (8-16) POC BUN BUN 18 mg/dL mg/dL (7-23) Creatinine 0.8 mg/dL mg/dL (0.6-1.0) POC Creatinine Estimated GFR > 60 Glucose 134 mg/dL H mg/dL (70-100) POC Glucose Calcium 9.8 mg/dL mg/dL (8.5-10.4) Urine Color YELLOW Urine Appearance MODERATELY TURBID Urine pH 6.0 (5.0-7.5) Ur Specific Emerson 1.006 (1.002-1.030) Urine Protein NEGATIVE (NEGATIVE) Urine Ketones NEGATIVE (NEGATIVE) Urine Blood 2+ H (NEGATIVE) Urine Nitrate NEGATIVE (NEGATIVE) Urine Bilirubin NEGATIVE (NEGATIVE) Urine Urobilinogen NEGATIVE EU EU (0.2-1.0) Ur Leukocyte Esterase 3+ H (NEGATIVE) Urine RBC 15-25 /hpf H /hpf (0-3) Urine WBC 50-182 /hpf H /hpf (0-3) Ur Epithelial Cells TRACE /lpf /lpf (NONE-1+) Amorphous Sediment PRESENT /hpf /hpf (NONE-1+) Urine Bacteria 1+ /hpf H /hpf (NONE SEEN) Urine Glucose NEGATIVE (NEGATIVE) 01/06/17 01/06/17 16:22 16:21 WBC 10.32 10^3/uL H 10^3/uL (3.80-9.50) RBC 3.76 10^6/uL L 10^6/uL (4.18-5.33) Hgb 11.7 g/dL L g/dL (12.6-16.3) POC Hgb 12.6 gm/dL gm/dL (12.3-15.9) Hct 35.0 % L % (38.0-47.0) POC Hct 37 % % (35.5-47.5) MCV 93.1 fL fL (81.5-99.8) MCH 31.1 pg pg (27.9-34.1) MCHC 33.4 g/dL g/dL (32.4-36.7) RDW 13.2 % % (11.5-15.2) Plt Count 338 10^3/uL 10^3/uL (150-400) MPV 9.7 fL fL (8.7-11.7) Neut % (Auto) 74.7 % H % (39.3-74.2) Lymph % (Auto) 14.1 % L % (15.0-45.0) Hickory % (Auto) 8.8 % % (4.5-13.0) Eos % (Auto) 1.4 % % (0.6-7.6) Baso % (Auto) 0.4 % % (0.3-1.7) Nucleat RBC Rel Count 0.0 % % (0.0-0.2) Absolute Neuts (auto) 7.71 10^3/uL H 10^3/uL (1.70-6.50) Absolute Lymphs (auto) 1.46 10^3/uL 10^3/uL (1.00-3.00) Absolute Monos (auto) 0.91 10^3/uL H 10^3/uL (0.30-0.80) Absolute Eos (auto) 0.14 10^3/uL 10^3/uL (0.03-0.40) Absolute Basos (auto) 0.04 10^3/uL 10^3/uL (0.02-0.10) Absolute Nucleated RBC 0.00 10^3/uL 10^3/uL (0-0.01) Immature Gran % 0.6 % % (0.0-1.1) Immature Gran # 0.06 10^3/uL 10^3/uL (0.00-0.10) PT INR APTT POC Sodium 139 mEq/L mEq/L (134-144) Sodium POC Potassium 3.3 mEq/L mEq/L (3.3-5.0) Potassium POC Chloride 99 mEq/L mEq/L (96-108) Chloride Carbon Dioxide Anion Gap POC BUN 18 mg/dL mg/dL (7-23) BUN Creatinine POC Creatinine 0.9 mg/dL mg/dL (0.6-1.2) Estimated GFR Glucose POC Glucose 140 mg/dL H mg/dL (70-100) Calcium Urine Color Urine Appearance Urine pH Ur Specific Emerson Urine Protein Urine Ketones Urine Blood Urine Nitrate Urine Bilirubin Urine Urobilinogen Ur Leukocyte Esterase Urine RBC Urine WBC Ur Epithelial Cells Amorphous Sediment Urine Bacteria Urine Glucose Medications Given: Discontinued Medications Ceftriaxone Sodium/Dextrose (Rocephin 1 Gm (Premix)) 50 mls @ 100 mls/hr IV EDNOW ONE PRN Reason: Protocol Stop: 01/06/17 18:05 Last Admin: 01/06/17 17:46 Dose: 50 mls Point of Care Test Results: 01/06/17 16:21 POC Sodium 139 POC Potassium 3.3 POC Chloride 99 POC BUN 18 POC Creatinine 0.9 POC Glucose 140 H Departure - Departure Disposition: Home, Routine, Self-Care Clinical Impression: Intertriginous dermatitis associated with moisture Urinary tract infection Qualifiers: Urinary tract infection type: acute cystitis Hematuria presence: with hematuria Qualified Code(s): N30.01 - Acute cystitis with hematuria Left shoulder pain Qualifiers: Chronicity: acute Qualified Code(s): M25.512 - Pain in left shoulder Condition: Good Instructions: Urinary Tract Infection in Women (ED), Shoulder Pain (ED) Additional Instructions: Return to the ER if Amy develops fevers, change in mental status or any other symptoms that concern you. You have a mass in the left paraspinous muscles which will need further evaluation by your medical provider. Recommend you follow up with orthopedic surgeon regarding your left shoulder pain FOR NURSING STAFF AT [facility]: 1) Please perform gentle bladder/abdominal massage after every diaper change 2) Apply Desitin Diaper cream to the red areas of groin three times daily 3) take the Keflex medication as directed until finished Referrals: Follow-up, with the medical provider Rosi Villarreal in 1 days [Other] - As per Instructions Javier Colindres MD [Medical Doctor] - 5-7 days, call for appt. (Dr. Colindres is orthopedic surgeon) Prescriptions: Cephalexin [Keflex] 500 mg PO QID 7 Days
[2017-01-06] MEDS ORDERED: IOPAMIDOL (ISOVUE-300) 100 ML BTL IV ONE (16:38)
[2017-01-06 16:43] LABS: % IMMATURE GRANULYOCYTES 0.6 % (0.0-1.1); ABSOLUTE IMMATURE GRANULOCYTES 0.06 10^3/uL (0.00-0.10); ADD DIFF? NO; ADD MORPH? NO; ADD SCAN? NO; ATYPICAL LYMPHOCYTE FLAG 10 (0-99); FRAGMENT RBC FLAG 10 (0-99); HEMOGLOBIN 11.7 g/dL (12.6-16.3); LEFT SHIFT FLG 0 (0-99); LIPEMIA HEMOLYSIS FLAG 80 (0-99); MEAN CELL HEMOGLOBIN 31.1 pg (27.9-34.1); MEAN CELL HEMOGLOBIN CONCENTR. 33.4 g/dL (32.4-36.7); MEAN CELL VOLUME 93.1 fL (81.5-99.8); MEAN PLATELET VOLUME 9.7 fL (8.7-11.7); PLATELET CLUMPS FLAG 10 (0-99); PLATELET COUNT 338 10^3/uL (150-400); RED BLOOD CELL COUNT 3.76 10^6/uL (4.18-5.33); RED CELL DISTRIBUTION WIDTH 13.2 % (11.5-15.2)
[2017-01-06 16:45] LABS: INR 1.23 (0.83-1.16); PROTIME(PATIENT) 15.5 SEC (12.0-15.0)
[2017-01-06 16:46] LABS: APTT 35.2 SEC (23.0-38.0)
[2017-01-06 16:58] LABS: ANION GAP 11 mEq/L (8-16); CALCIUM 9.8 mg/dL (8.5-10.4); CARBON DIOXIDE 24 mEq/l (22-31); CHLORIDE 101 mEq/L (97-110); CREATININE 0.8 mg/dL (0.6-1.0); GLOMERULAR FILTRATION RATE > 60; GLUCOSE 134 mg/dL (70-100); POTASSIUM 3.6 mEq/L (3.5-5.2); SODIUM 136 mEq/L (134-144)
[2017-01-06 17:09] LABS: COLOR YELLOW; LEUKOCYTE ESTERASE,URINE 3+ (NEGATIVE); NITRITE,URINE NEGATIVE (NEGATIVE)
[2017-01-06 17:16] LABS: AMORPHOUS PRESENT /hpf (NONE-1+); BACTERIA 1+ /hpf (NONE SEEN); RBC,URINE 15-25 /hpf (0-3); WBC,URINE 50-182 /hpf (0-3)
[2017-01-06] MEDS ORDERED: DESITIN MAX STRENGTH OINTMENT TP PRN (18:29)
[2017-01-06 18:58] VITALS: BP 150/74; PULSE 79; O2SAT 91
[2017-01-06 19:10] VITALS: RESP 18; TEMP 98.5
== END 2017-01-06 19:05 | disposition home or self-care (01) ==
LOC: EDUNIT#
DX: N30.01 Acute cystitis with hematuria (principal); M25.512 Pain in left shoulder; L30.4 Erythema intertrigo; I10 Essential (primary) hypertension; I25.10 Atherosclerotic heart disease of native coronary artery without angina pectoris; B95.2 Enterococcus as the cause of diseases classified elsewhere; Z86.73 Personal history of transient ischemic attack (TIA), and cerebral infarction without residual deficits; Z79.01 Long term (current) use of anticoagulants; Z87.891 Personal history of nicotine dependence; Z79.82 Long term (current) use of aspirin
CPT/HCPCS: 73030; 74177; 96374; 99285; J0696; Q9967; 82947-QW

== ENCOUNTER → 2017-02-13 | Outpatient (CLI) | payer OTHER, MEDICAID ==
[~2017-02-13] MED LIST: IOPAMIDOL (ISOVUE-300) 100 ML BTL IV ONE
== END ==
LOC: FIMAGING 13:18
PROVIDERS: ATTEND Internal Medicine
DX: R10.9 Unspecified abdominal pain (principal); R19.07 Generalized intra-abdominal and pelvic swelling, mass and lump; K44.9 Diaphragmatic hernia without obstruction or gangrene
CPT/HCPCS: 74177; Q9967

== ENCOUNTER → 2017-02-23 | Outpatient (CLI) | payer OTHER, MEDICAID | LOC: BHFA 13:00 | PROVIDERS: ATTEND Internal Medicine Cardiovascular Disease | DX: I48.91 Unspecified atrial fibrillation (principal); I25.10 Atherosclerotic heart disease of native coronary artery without angina pectoris; I50.9 Heart failure, unspecified ==

== ENCOUNTER → 2017-12-25 | Outpatient (CLI) | payer OTHER, MEDICAID ==
[~2017-12-25] MED LIST changes: -IOPAMIDOL (ISOVUE-300) 100 ML BTL IV ONE; +IOPAMIDOL (ISOVUE-300) 100 ML BTL ONE
== END ==
LOC: FIMAGING 12:35
PROVIDERS: ATTEND Internal Medicine Geriatric Medicine
DX: M62.89 Other specified disorders of muscle (principal); R91.8 Other nonspecific abnormal finding of lung field
CPT/HCPCS: 74177; Q9967

== ENCOUNTER → 2018-01-01 | Outpatient (CLI) | payer OTHER, MEDICAID ==
[~2018-01-01] MED LIST changes: -IOPAMIDOL (ISOVUE-300) 100 ML BTL ONE; +LIDOCAINE 1% 300 MG/30 ML SDV ONE
--- NOTE | 2018-01-01 13:07 | PDRADPN ---
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
== END ==
LOC: FIMAGING 12:02
PROVIDERS: ATTEND Internal Medicine Geriatric Medicine
PROC: 0KBJ3ZX Excision of Left Thorax Muscle, Percutaneous Approach, Diagnostic (ICD-10-PCS; principal; 2018-01-01)
DX: C41.2 Malignant neoplasm of vertebral column (principal)